=== PATIENT | female | born 1945 | race Caucasian/White ===

== ENCOUNTER 2016-05-25 03:42 | Emergency (ER) | payer OTHER, MEDICARE ==
[~2016-05-25] VITALS: Ht 157.5 cm; Wt 50.0 kg
[~2016-05-25 03:42] MED LIST: ALBU0.63 NEB; AMLO5TAB2 PO; ASPI-515 PO; ASPI-621 PO; ASPI-650 PO; ASTHMA MED PO; ATOR40TA78 PO; CALC-666 PO; CIPR500T87 PO; DIPH25CA61 PO; ESOM40CA PO; ESTR1.25 PO; FLUD0.1T PO; HYDR2TAB13 PO; LIDOCAINE; LORA-702 PO; MAGN400T26 PO; MONT10TA9 PO; ONDA4TAB7 PO; OXYC-302 PO; POTA20LI PO; POTA20TA89 PO; POTA500T PO; PROM25SU34 RC; TAMS-11 PO; TRAM50TA2 PO
[2016-05-25] MEDS ORDERED: LISI5TAB7 PO (04:12)
[2016-05-25 04:37] LABS: BLOOD UREA NITROGEN 16 mg/dL (7-18)
[2016-05-25 04:52] LABS: ASPARTATE AMINO TRANSFERASE 34 U/L (15-37); IS PT STATUS REG ER OR PRE ER? YES
[2016-05-25] MEDS ORDERED: POTASSIUM CHLORIDE 20 MEQ TAB.ER.PRT ONE (05:28)
[2016-05-25] MEDS ORDERED: NITROGLYCERIN OINT 2%, 1GM TP ONE ×2 (05:29→05:30)
[2016-05-25] MEDS ORDERED: POTASSIUM CHLORIDE 20 MEQ TAB.ER.PRT PO ONE (05:30)
[2016-05-25 06:07] VITALS: BP 178/79
== END 2016-05-25 06:16 | disposition home or self-care (01) ==
LOC: ED 04:08
DX: R07.2 Precordial pain (principal); I10 Essential (primary) hypertension; E87.6 Hypokalemia; Z90.89 Acquired absence of other organs; Z90.49 Acquired absence of other specified parts of digestive tract
CPT/HCPCS: 36415; 71010; 80053; 83690; 83735; 84436; 84443; 84484; 85025; 93005; 99285

== ENCOUNTER → 2016-06-18 | Outpatient (CLI) | payer OTHER, MEDICARE ==
[~2016-06-18] MED LIST changes: +LISI5TAB7 PO
== END | disposition home or self-care (01) ==
LOC: CFH 08:10
PROVIDERS: ATTEND Genetic Counselor, MS
DX: Z12.31 Encounter for screening mammogram for malignant neoplasm of breast (principal)
CPT/HCPCS: 77063; G0202

== ENCOUNTER 2016-07-18 19:40 | Emergency (ER) | payer OTHER, MEDICARE ==
[~2016-07-18] VITALS: Ht 160 cm; Wt 57.0 kg
[2016-07-18] MEDS ORDERED: DIPH,PERTUSS(ACELL),TET VAC/PF 0.5 ML IM-VACC ONE ×2 (20:15→20:30)
[2016-07-18] MEDS ORDERED: LIDOCAINE 1%, 20ML ONE (20:47)
[2016-07-18] MEDS ORDERED: LIDOCAINE 1%, 10ML INFIL ONE (21:00)
[2016-07-18 21:33] VITALS: BP 184/81
== END 2016-07-18 21:46 | disposition home or self-care (01) ==
LOC: ED 20:53
DX: S81.841A Puncture wound with foreign body, right lower leg, initial encounter (principal); R05 Cough; I10 Essential (primary) hypertension; W54.8XXA Other contact with dog, initial encounter; Y93.89 Activity, other specified; Y92.89 Other specified places as the place of occurrence of the external cause; Y99.8 Other external cause status
CPT/HCPCS: 10120; 71020; 90471; 90715

== ENCOUNTER → 2016-08-06 | Outpatient (CLI) | payer OTHER, MEDICARE ==
[~2016-08-06] MED LIST changes: -HYDR2TAB13 PO; +HYDR2TAB29 PO
== END | disposition home or self-care (01) ==
LOC: LAB 10:29
PROVIDERS: ATTEND Genetic Counselor, MS
DX: E03.9 Hypothyroidism, unspecified (principal); I10 Essential (primary) hypertension
CPT/HCPCS: 36415; 84439; 84443; 86003; 86005

== ENCOUNTER → 2016-09-17 | Outpatient (CLI) | payer OTHER, MEDICARE | END | disposition home or self-care (01) | LOC: RAD 08:06 | PROVIDERS: ATTEND Nurse Practitioner Family | DX: M25.562 Pain in left knee (principal); M79.662 Pain in left lower leg ==

== ENCOUNTER → 2016-09-21 | Outpatient (CLI) | payer OTHER, MEDICARE | END | disposition home or self-care (01) | LOC: LAB 20:08 | PROVIDERS: ATTEND Nurse Practitioner Family | DX: R19.7 Diarrhea, unspecified (principal) | CPT/HCPCS: 87046; 87177; 87209; 87324; 87899; 89055 ==

== ENCOUNTER → 2016-09-24 | Outpatient (CLI) | payer OTHER, MEDICARE ==
[~2016-09-24] MED LIST changes: +OMNIPAQUE 350 MG/ML, 75ML BOTTLE ONE
== END | disposition home or self-care (01) ==
LOC: RAD 12:34
PROVIDERS: ATTEND Genetic Counselor, MS
DX: I70.0 Atherosclerosis of aorta (principal); M47.894 Other spondylosis, thoracic region; K76.0 Fatty (change of) liver, not elsewhere classified; N20.0 Calculus of kidney; Z90.49 Acquired absence of other specified parts of digestive tract
CPT/HCPCS: 36415; 71260; 82565; Q9967

== ENCOUNTER → 2016-09-28 | Outpatient (CLI) | payer OTHER, MEDICARE ==
[~2016-09-28] MED LIST changes: -OMNIPAQUE 350 MG/ML, 75ML BOTTLE ONE
== END | disposition home or self-care (01) ==
LOC: LAB 15:07
PROVIDERS: ATTEND Genetic Counselor, MS
DX: E03.9 Hypothyroidism, unspecified (principal)
CPT/HCPCS: 36415; 84439; 84443

== ENCOUNTER 2017-01-03 10:54 | Day surgery (SDC) | payer OTHER, MEDICARE ==
[~2017-01-03] VITALS: Ht 158.8 cm; Wt 59.1 kg
[2017-01-03] MEDS ORDERED: PANT40TA5 PO (11:52)
[2017-01-03] MEDS ORDERED: LACTATED RINGERS 1,000 ML IV SCH (11:57)
[2017-01-03 12:01] VITALS: BP 142/68
[2017-01-03] MEDS ORDERED: PLEASE ENTER HEIGHT AND WEIGHT MC SCH (12:30)
[2017-01-03] MEDS ORDERED: LIDOCAINE/PF 1%, 30ML ONE (12:31)
[2017-01-03] MEDS ORDERED: BACITRACIN 50,000 UNIT ONE (12:31)
[2017-01-03 12:48] LABS: ASPARTATE AMINO TRANSFERASE 24 U/L (15-37); BLOOD UREA NITROGEN 17 mg/dL (7-18)
[2017-01-03] MEDS ORDERED: ONDANSETRON 2MG/ML, 2ML ONE (13:59)
[2017-01-03] MEDS ORDERED: CLINDAMYCIN 150 MG/ML, 6ML ONE (13:59)
[2017-01-03] MEDS ORDERED: DEXAMETHASONE 4 MG/ML, 5ML ONE (13:59)
[2017-01-03] MEDS ORDERED: FENTANYL PF 100 MCG/2ML ONE (13:59)
[2017-01-03] MEDS ORDERED: MIDAZOLAM 1 MG/ML, 2ML ONE (13:59)
[2017-01-03] MEDS ORDERED: PROPOFOL 10 MG/ML, 20ML ONE (13:59)
[2017-01-03] MEDS ORDERED: MEPERIDINE/PF 25MG/0.5ML IVPush PRN (14:00)
[2017-01-03] MEDS ORDERED: OXYcodone 5 MG/5 ML ORAL.SOL UDC PO PRN (14:00)
[2017-01-03] MEDS ORDERED: ONDANSETRON 2MG/ML, 2ML IVPush PRN (14:00)
[2017-01-03] MEDS ORDERED: ACETAMINOPHEN 325 MG TABLET PO PRN (14:00)
[2017-01-03] MEDS ORDERED: PROMETHAZINE 25 MG/ML, 1ML IV PRN (14:00)
[2017-01-03] MEDS ORDERED: LABETALOL 5MG/ML, 20ML IV PRN (14:00)
[2017-01-03] MEDS ORDERED: FENTANYL PF 100 MCG/2ML IV PRN (14:00)
[2017-01-03] MEDS ORDERED: KETOROLAC 30 MG/1 ML IV PRN (14:00)
[2017-01-03] MEDS ORDERED: OXYcodone 5 MG/5 ML ORAL.SOL UDC ONE (14:54)
[2017-01-03] MEDS ORDERED: ACETAMINOPHEN 650 MG/20.3 ML UDC ONE (14:54)
== END 2017-01-03 17:25 | disposition home or self-care (01) ==
LOC: OUT 10:54
PROVIDERS: ATTEND Orthopaedic Surgery
DX: T84.84XA Pain due to internal orthopedic prosthetic devices, implants and grafts, initial encounter (principal); Y83.8 Other surgical procedures as the cause of abnormal reaction of the patient, or of later complication, without mention of misadventure at the time of the procedure; Y92.89 Other specified places as the place of occurrence of the external cause; J45.909 Unspecified asthma, uncomplicated; I10 Essential (primary) hypertension; Z88.6 Allergy status to analgesic agent; Z88.1 Allergy status to other antibiotic agents; Z88.5 Allergy status to narcotic agent; Z88.0 Allergy status to penicillin; Z88.8 Allergy status to other drugs, medicaments and biological substances
CPT/HCPCS: 20680; 36415; 73140; 76000; 80053; 93005; J1100; J2250; J2405; J2704; J3010; J3490

== ENCOUNTER 2017-01-11 19:34 | Emergency (ER) | payer OTHER, MEDICARE ==
[~2017-01-11] VITALS: Ht 157.5 cm; Wt 50.0 kg
[~2017-01-11 19:34] MED LIST changes: +PANT40TA5 PO
[2017-01-11] MEDS ORDERED: SODIUM CHLORIDE 0.9% 1,000ML IVBOLUS ONE (20:00)
[2017-01-11] MEDS ORDERED: SODIUM CHLORIDE FLUSH 10ML SYR IVF ONE (20:00)
[2017-01-11] MEDS ORDERED: KETOROLAC 30 MG/1 ML IVPush ONE (20:00)
[2017-01-11] MEDS ORDERED: KETOROLAC 30 MG/1 ML ONE (20:11)
[2017-01-11] MEDS ORDERED: ONDANSETRON 2MG/ML, 2ML ONE (20:11)
[2017-01-11] MEDS ORDERED: ONDANSETRON 2MG/ML, 2ML IVPush ONE (20:30)
[2017-01-11 20:31] LABS: HEMATOCRIT 45.2 % (34.6-47.8); HEMOGLOBIN 15.8 g/dL (11.7-16.4); WHITE BLOOD COUNT 10.4 x10^3/uL (3.4-10)
[2017-01-11 20:39] LABS: ASPARTATE AMINO TRANSFERASE 33 U/L (15-37); BLOOD UREA NITROGEN 15 mg/dL (7-18)
[2017-01-11] MEDS ORDERED: HYDROmorphone 1 MG/ML, 1ML IV ONE (21:30)
[2017-01-11] MEDS ORDERED: HYDROmorphone 1 MG/ML, 1ML ONE (21:32)
[2017-01-11 23:02] VITALS: BP 126/65
== END 2017-01-11 23:03 | disposition home or self-care (01) ==
LOC: ED 20:03
DX: N20.0 Calculus of kidney (principal); K21.9 Gastro-esophageal reflux disease without esophagitis; I10 Essential (primary) hypertension
CPT/HCPCS: 36415; 74176; 80053; 81003; 85025; 96361; 96374; 96375; 99285; J1170; J1885; J2405; J7030

== ENCOUNTER → 2017-02-03 | Outpatient (CLI) | payer OTHER, MEDICARE ==
[2017-02-03 14:08] LABS: ASPARTATE AMINO TRANSFERASE 47 U/L (15-37); BLOOD UREA NITROGEN 12 mg/dL (7-18)
== END | disposition home or self-care (01) ==
LOC: STAR 13:08
PROVIDERS: ATTEND Urology
DX: Z01.818 Encounter for other preprocedural examination (principal); N20.2 Calculus of kidney with calculus of ureter; N23 Unspecified renal colic
CPT/HCPCS: 36415; 80053; 81003; 87086

== ENCOUNTER 2017-03-31 14:15 | Inpatient (IN) | payer OTHER, MEDICARE ==
[~2017-03-31] VITALS: Ht 158.8 cm; Wt 65.0 kg
[2017-03-31] MEDS ORDERED: METOCLOPRAMIDE 5 MG/ML, 2ML ONE (14:56)
[2017-03-31] MEDS ORDERED: DIPHENHYDRAMINE 50 MG/ML, 1ML ONE (14:56)
[2017-03-31] MEDS ORDERED: KETOROLAC 30 MG/1 ML ONE (14:56)
[2017-03-31] MEDS ORDERED: BUPIVACAINE/PF 0.5% ONE (14:56)
[2017-03-31] MEDS ORDERED: BUPIVACAINE/PF-EPI 0.5% 1:200K INFIL ONE (15:00)
[2017-03-31] MEDS ORDERED: DIPHENHYDRAMINE 50 MG/ML, 1ML IVPush ONE (15:00)
[2017-03-31] MEDS ORDERED: KETOROLAC 30 MG/1 ML IVPush ONE (15:00)
[2017-03-31] MEDS ORDERED: METOCLOPRAMIDE 5 MG/ML, 2ML IVPush ONE (15:00)
[2017-03-31] MEDS ORDERED: SODIUM CHLORIDE 0.9% 1,000ML IVBOLUS ONE (15:00)
[2017-03-31 15:34] LABS: BASOPHILS # (AUTO) 0.06 x10^3/uL (0-0.1); BASOPHILS % (AUTO) 1 % (0-1); EOSINOPHILS % (AUTO) 1 % (1-7); LYMPHOCYTES # (AUTO) 1.43 x10^3/uL (1-3.4); LYMPHOCYTES % (AUTO) 13 % (22-44); MD NO; MEAN CORPUSCULAR HEMOGLOBIN 29.7 pg (27.0-34.8); MEAN CORPUSCULAR HGB CONC 33.6 g/dL (32.4-35.8); MEAN CORPUSCULAR VOLUME 88.4 fL (80-100); MEAN PLATELET VOLUME 7.8 fL (7.4-10.4); MONOCYTES # (AUTO) 0.61 x10^3/uL (0.2-0.8); MONOCYTES % (AUTO) 6 % (2-9); NEUTROPHILS # (AUTO) 8.67 x10^3/uL (1.8-6.8); NEUTROPHILS % (AUTO) 80 % (42-75); PLATELET COUNT 280 x10^3/uL (130-400); RED BLOOD COUNT 5.02 x10^6/uL (3.82-5.3); RED CELL DISTRIBUTION WIDTH 12.8 % (9.6-15.2)
[2017-03-31 15:46] LABS: ALBUMIN 3.5 g/dL (3.4-5.0); ANION GAP 8 mmol/L (5-15); CALCIUM 8.4 mg/dL (8.5-10.1); CHLORIDE 102 mmol/L (98-107)
[2017-03-31 15:52] LABS: CREATININE 0.78 mg/dL (0.55-1.02); TROPONIN I < 0.015 ng/mL (0.000-0.045)
[2017-03-31] MEDS ORDERED: HYDROmorphone 2 MG/ML, 1ML ONE ×2 (16:19→18:19)
[2017-03-31] MEDS ORDERED: DEXAMETHASONE 4 MG/ML, 5ML ONE (16:19)
[2017-03-31] MEDS ORDERED: DEXAMETHASONE 4 MG/ML, 1ML PO ONE (16:30)
[2017-03-31] MEDS ORDERED: HYDROmorphone 1 MG/ML, 1ML IV ONE ×2 (16:30→18:30)
[2017-03-31 20:58] VITALS: BP 153/76
[2017-03-31] MEDS ORDERED: POLYETHYLENE GLYCOL 17 GM PACKET PO PRN (22:00)
[2017-03-31] MEDS ORDERED: ACETAMINOPHEN 325 MG TABLET PO PRN (22:00)
[2017-03-31] MEDS ORDERED: BISACODYL 10 MG SUPP PR PRN (22:00)
[2017-03-31] MEDS ORDERED: ONDANSETRON 2MG/ML, 2ML IVPush PRN (22:00)
[2017-03-31] MEDS: SODIUM CHLORIDE FLUSH 10ML SYR IVF SCH (22:28)
[2017-03-31] MEDS: HEPARIN 5,000 UNITS/ML, 1ML SQ SCH (22:28)
[2017-03-31] MEDS: METHOCARBAMOL 750 MG TABLET PO PRN (22:28)
[2017-03-31] MEDS: KETOROLAC 30 MG/1 ML IVPush PRN (22:28)
[2017-04-01 01:20] VITALS: BP 143/71
[2017-04-01] MEDS ORDERED: DIPHENHYDRAMINE 25 MG CAPSULE PO ONE (01:30)
[2017-04-01] MEDS: HEPARIN 5,000 UNITS/ML, 1ML SQ SCH ×3 (06:29→22:04)
[2017-04-01] MEDS: KETOROLAC 30 MG/1 ML IVPush PRN ×3 (06:29→18:22)
[2017-04-01] MEDS: METHOCARBAMOL 750 MG TABLET PO PRN ×2 (06:29→14:36)
[2017-04-01 07:03] VITALS: BP 128/69
[2017-04-01] MEDS: ASPIRIN 81 MG TABLET EC PO SCH (08:36)
[2017-04-01] MEDS: MONTELUKAST 10 MG TABLET PO SCH (08:36)
[2017-04-01] MEDS: PANTOPROZOLE 40MG TABLET PO SCH (08:36)
[2017-04-01] MEDS: LORATADINE/PSE 5/120MG TAB.ER.12H PO SCH ×2 (08:37→20:53)
[2017-04-01] MEDS: SENNA/DOCUSATE TABLET PO SCH (09:00)
[2017-04-01] MEDS: SODIUM CHLORIDE FLUSH 10ML SYR IVF SCH ×2 (09:12→22:04)
[2017-04-01 12:30] VITALS: BP 129/56
[2017-04-01] MEDS: OXYcodone/APAP 5/325MG TABLET PO PRN ×3 (14:52→20:53)
[2017-04-01] MEDS ORDERED: HYDROmorphone 2 MG/ML, 1ML IVPush ONE (17:00)
[2017-04-01] MEDS: GABAPENTIN 300 MG CAPSULE PO SCH ×2 (17:20→20:53)
[2017-04-01] MEDS: DEXAMETHASONE 4 MG TABLET PO SCH (17:20)
[2017-04-01] MEDS ORDERED: NALOXONE 0.4 MG/ML, 1ML IVPush PRN (17:30)
[2017-04-01] MEDS ORDERED: POTASSIUM CHLORIDE 20 MEQ TAB.ER.PRT PO ONE (17:30)
[2017-04-01] MEDS ORDERED: BUTALB/APAP/CAFFEINE 50MG/325MG/40MG PO PRN (17:30)
[2017-04-01] MEDS ORDERED: LIDODERM 5% PATCH TD SCH (18:00)
[2017-04-01 18:50] VITALS: BP 137/65
[2017-04-01] MEDS: OxyconTIN ER 10 MG TAB.ER PO SCH (20:52)
[2017-04-01] MEDS ORDERED: DIPHENHYDRAMINE 25 MG CAPSULE PO PRN (21:30)
[2017-04-02] MEDS: OXYcodone/APAP 5/325MG TABLET PO PRN ×3 (01:21→12:32)
[2017-04-02] MEDS: METHOCARBAMOL 750 MG TABLET PO PRN ×2 (01:21→14:38)
[2017-04-02 01:36] VITALS: BP 130/65
[2017-04-02 05:29] LABS: ANION GAP 7 mmol/L (5-15); CHLORIDE 105 mmol/L (98-107)
[2017-04-02 05:57] LABS: CALCIUM 8.1 mg/dL (8.5-10.1); CREATININE 0.72 mg/dL (0.55-1.02)
[2017-04-02 06:40] VITALS: BP 150/70
[2017-04-02] MEDS: HEPARIN 5,000 UNITS/ML, 1ML SQ SCH ×2 (06:51→14:00)
[2017-04-02] MEDS: DEXAMETHASONE 4 MG TABLET PO SCH ×2 (08:50→12:31)
[2017-04-02] MEDS: SENNA/DOCUSATE TABLET PO SCH (08:50)
[2017-04-02] MEDS: MONTELUKAST 10 MG TABLET PO SCH (08:50)
[2017-04-02] MEDS: GABAPENTIN 300 MG CAPSULE PO SCH (08:50)
[2017-04-02] MEDS: OxyconTIN ER 10 MG TAB.ER PO SCH (08:50)
[2017-04-02] MEDS: ASPIRIN 81 MG TABLET EC PO SCH (08:50)
[2017-04-02] MEDS: LORATADINE/PSE 5/120MG TAB.ER.12H PO SCH (08:50)
[2017-04-02] MEDS: PANTOPROZOLE 40MG TABLET PO SCH (08:50)
[2017-04-02] MEDS: SODIUM CHLORIDE FLUSH 10ML SYR IVF SCH (08:51)
[2017-04-02] MEDS ORDERED: ESTROGENS CONJUGATED 0.625 MG TABLET PO SCH (09:00)
[2017-04-02 12:18] VITALS: BP 172/70
[2017-04-02 12:27] VITALS: BP 148/74
[2017-04-02] MEDS ORDERED: METH750T2 PO (12:52)
[2017-04-02] MEDS ORDERED: METH4TAB6 PO (12:52)
[2017-04-02] MEDS ORDERED: GABA300C10 PO (12:52)
[2017-04-02] MEDS ORDERED: ERGO500017 PO (12:52)
[2017-04-02] MEDS ORDERED: ACET325T14 PO (12:52)
[2017-04-02] MEDS ORDERED: KETO10TA PO (12:52)
[2017-04-02] MEDS ORDERED: ERGOCALCIFEROL 50,000 UNIT CAPSULE PO SCH (13:00)
[2017-04-02 14:00] VITALS: BP 145/70
== END 2017-04-02 14:50 | disposition home or self-care (01) | DRG 552 ==
LOC: ED 14:54 → EDIP 19:53 → 4NOR 20:34
PROVIDERS: ADMIT Hospitalist; ATTEND Hospitalist
PROC: 3E023BZ Introduction of Anesthetic Agent into Muscle, Percutaneous Approach (ICD-10-PCS; principal; 2017-03-31)
PROC: 3E0T3BZ Introduction of Anesthetic Agent into Peripheral Nerves and Plexi, Percutaneous Approach (ICD-10-PCS; 2017-03-31)
DX: M48.02 Spinal stenosis, cervical region (principal); M50.21 Other cervical disc displacement, high cervical region; G43.909 Migraine, unspecified, not intractable, without status migrainosus; E55.9 Vitamin D deficiency, unspecified; E87.6 Hypokalemia; K21.9 Gastro-esophageal reflux disease without esophagitis; I10 Essential (primary) hypertension; M25.78 Osteophyte, vertebrae; Z80.0 Family history of malignant neoplasm of digestive organs; Z86.73 Personal history of transient ischemic attack (TIA), and cerebral infarction without residual deficits; Z87.442 Personal history of urinary calculi; Z90.710 Acquired absence of both cervix and uterus
CPT/HCPCS: 20552; 36415; 64450; 71045; 72141; 80048; 82040; 82306; 82607; 83735; 84484; 85025; 93005; 96361; 96374; 96375; 96376; J1100; J1170; J1644; J1885; J1200; J2765; J7030; Q0163

== ENCOUNTER → 2017-07-30 | Outpatient (CLI) | payer OTHER, MEDICARE ==
[~2017-07-30] MED LIST changes: +ACET325T14 PO; +ERGO500017 PO; +GABA300C10 PO; +KETO10TA PO; +METH4TAB6 PO; +METH750T2 PO
[2017-07-30 13:31] LABS: BASOPHILS # (AUTO) 0.08 x10^3/uL (0-0.1); BASOPHILS % (AUTO) 1 % (0-1); EOSINOPHILS # (AUTO) 0.38 x10^3/uL (0-0.4); EOSINOPHILS % (AUTO) 4 % (1-7); LYMPHOCYTES # (AUTO) 1.56 x10^3/uL (1-3.4); LYMPHOCYTES % (AUTO) 17 % (22-44); MD NO; MEAN CORPUSCULAR HGB CONC 34.1 g/dL (32.4-35.8); MEAN CORPUSCULAR VOLUME 88.2 fL (80-100); MEAN PLATELET VOLUME 7.1 fL (7.4-10.4); MONOCYTES # (AUTO) 0.45 x10^3/uL (0.2-0.8); MONOCYTES % (AUTO) 5 % (2-9); NEUTROPHILS % (AUTO) 74 % (42-75); PLATELET COUNT 234 x10^3/uL (130-400); RED BLOOD COUNT 4.64 x10^6/uL (3.82-5.3); RED CELL DISTRIBUTION WIDTH 13.3 % (9.6-15.2)
[2017-07-30 13:42] LABS: CHLORIDE 109 mmol/L (98-107)
[2017-07-30 13:59] LABS: ALANINE AMINOTRANSFERASE 41 U/L (12-78); ALBUMIN 3.2 g/dL (3.4-5.0); ALKALINE PHOSPHATASE 75 U/L (45-117); ANION GAP 6 mmol/L (5-15); BILIRUBIN,TOTAL 0.8 mg/dL (0.2-1.0); CALCIUM 8.5 mg/dL (8.5-10.1); CHOL/HDL RATIO 4.7; CHOLESTEROL, TOTAL 203 mg/dL (140-239); CREATININE 0.73 mg/dL (0.55-1.02); FREE T4 (FREE THYROXINE) 1.41 ng/dL (0.76-1.46); HDL CHOL % 21 % (28-40); HDL CHOLESTEROL (DIRECT) 43 mg/dL (40-60); LDL CHOLESTEROL,CALCULATED 136 mg/dL (54-169); LDL/HDL RATIO 3.2 (0.5-3.0); TOTAL PROTEIN 6.4 g/dL (6.4-8.2); TRIGLYCERIDES 118 mg/dL (50-200); VLDL CHOLESTEROL 24 mg/dL (0-25)
== END ==
LOC: LAB 13:01
PROVIDERS: ATTEND Genetic Counselor, MS
DX: Z13.820 Encounter for screening for osteoporosis (principal); I10 Essential (primary) hypertension; E03.9 Hypothyroidism, unspecified
CPT/HCPCS: 36415; 80053; 80061; 82306; 83735; 84439; 84443; 85025

== ENCOUNTER → 2017-09-01 | Outpatient (CLI) | payer OTHER, MEDICARE | END | disposition home or self-care (01) | LOC: RAD 12:10 | PROVIDERS: ATTEND Urology | DX: N20.0 Calculus of kidney (principal) | CPT/HCPCS: 76770 ==

== ENCOUNTER → 2017-09-28 | Outpatient (CLI) | payer OTHER, MEDICARE ==
[~2017-09-28] MED LIST changes: +LISI-167 PO
[2017-09-28 17:13] LABS: ALANINE AMINOTRANSFERASE 41 U/L (12-78); ALBUMIN 3.4 g/dL (3.4-5.0); ANION GAP 8 mmol/L (5-15); CALCIUM 8.3 mg/dL (8.5-10.1); CHLORIDE 108 mmol/L (98-107); CREATININE 0.89 mg/dL (0.55-1.02)
[2017-09-28 17:22] LABS: ALKALINE PHOSPHATASE 82 U/L (45-117); BILIRUBIN,TOTAL 0.7 mg/dL (0.2-1.0); FREE T4 (FREE THYROXINE) 1.46 ng/dL (0.76-1.46); THYROID STIMULATING HORMONE 0.747 mIU/L (0.358-3.740); TOTAL PROTEIN 6.8 g/dL (6.4-8.2)
== END | disposition home or self-care (01) ==
LOC: LAB 16:41
PROVIDERS: ATTEND Genetic Counselor, MS
DX: I10 Essential (primary) hypertension (principal); E03.9 Hypothyroidism, unspecified
CPT/HCPCS: 36415; 80053; 84439; 84443

== ENCOUNTER 2017-10-10 06:34 | Day surgery (SDC) | payer OTHER, MEDICARE ==
[~2017-10-10] VITALS: Ht 157.5 cm; Wt 63.3 kg
[2017-10-10] MEDS ORDERED: LACTATED RINGERS 1,000 ML IV SCH (07:21)
[2017-10-10 07:43] VITALS: BP 168/77
[2017-10-10] MEDS ORDERED: DICY10CA3 PO (07:52)
[2017-10-10] MEDS ORDERED: LORA10TA3 PO (07:52)
[2017-10-10] MEDS ORDERED: LEVO50TA5 PO (07:52)
[2017-10-10] MEDS ORDERED: PANT40TA5 PO (07:52)
[2017-10-10] MEDS ORDERED: ESTR1TAB15 PO (07:52)
[2017-10-10] MEDS ORDERED: MIDAZOLAM 1 MG/ML, 2ML ONE (08:09)
[2017-10-10] MEDS ORDERED: FENTANYL PF 250 MCG/5ML ONE (08:11)
[2017-10-10] MEDS ORDERED: FENTANYL PF 100 MCG/2ML IV PRN (09:00)
[2017-10-10] MEDS ORDERED: PROMETHAZINE 25 MG SUPP PR PRN (09:00)
[2017-10-10] MEDS ORDERED: ONDANSETRON ODT 8 MG PO PRN (09:00)
[2017-10-10] MEDS ORDERED: PROMETHAZINE 25 MG/ML, 1ML IV PRN (09:00)
[2017-10-10] MEDS ORDERED: OXYcodone 5 MG/5 ML ORAL.SOL UDC PO PRN (09:00)
[2017-10-10] MEDS ORDERED: LABETALOL 5MG/ML, 20ML IV PRN (09:00)
[2017-10-10] MEDS ORDERED: ONDANSETRON 2MG/ML, 2ML IV PRN (09:00)
[2017-10-10] MEDS ORDERED: ACETAMINOPHEN 325 MG TABLET PO PRN (09:00)
[2017-10-10] MEDS ORDERED: ALBUTEROL HFA 90 MCG/SPRAY ONE (09:36)
[2017-10-10] MEDS ORDERED: LIDOCAINE GEL 2%, 5ML ONE ×2 (09:37)
[2017-10-10] MEDS ORDERED: GLYCOPYRROLATE 0.2MG/1ML, 5ML ONE (09:37)
[2017-10-10] MEDS ORDERED: SUCCINYLCHOLINE 20 MG/ML, 10ML ONE (09:37)
[2017-10-10] MEDS ORDERED: NEOSTIGMINE 1 MG/ML, 10ML ONE (09:37)
[2017-10-10] MEDS ORDERED: ONDANSETRON 2MG/ML, 2ML ONE (09:37)
[2017-10-10] MEDS ORDERED: PROPOFOL 10 MG/ML, 20ML ONE (09:37)
[2017-10-10] MEDS ORDERED: DEXAMETHASONE 4 MG/ML, 1ML ONE (09:37)
[2017-10-10] MEDS ORDERED: CEFAZOLIN 1,000 MG ONE (09:37)
[2017-10-10] MEDS ORDERED: ROCURONIUM 10MG/ML,5ML ONE (09:37)
[2017-10-10] MEDS ORDERED: ALBUTEROL/IPRATROPIUM 2.5MG/0.5MG, 3 ML ONE ×2 (09:48→16:16)
[2017-10-10] MEDS ORDERED: OXYcodone/APAP 5/325MG TABLET PO PRN (10:00)
[2017-10-10] MEDS ORDERED: KETOROLAC 30 MG/1 ML IV PRN (10:00)
[2017-10-10] MEDS ORDERED: ALBUTEROL/IPRATROPIUM 2.5MG/0.5MG, 3 ML NPPB PRN (10:00)
[2017-10-10] MEDS ORDERED: KETOROLAC 30 MG/1 ML ONE (10:23)
[2017-10-10] MEDS ORDERED: OXYcodone 5 MG/5 ML ORAL.SOL UDC ONE ×2 (10:40→10:42)
[2017-10-10] MEDS ORDERED: FENTANYL PF 100 MCG/2ML ONE (10:42)
[2017-10-10] MEDS ORDERED: ALBUTEROL SULFATE 200 PUFFS/8.5 GR INH ONE (15:10)
[2017-10-10] MEDS ORDERED: KETOROLAC 30 MG/1 ML IVPush PRN ×2 (17:30)
== END 2017-10-10 19:15 | disposition home or self-care (01) ==
LOC: OUT 06:34 → MERGE 17:30 → OUT 19:15
PROVIDERS: ATTEND Urology
DX: N20.0 Calculus of kidney (principal); J45.909 Unspecified asthma, uncomplicated; I10 Essential (primary) hypertension; E03.9 Hypothyroidism, unspecified; Z88.6 Allergy status to analgesic agent; Z88.1 Allergy status to other antibiotic agents; Z88.8 Allergy status to other drugs, medicaments and biological substances; Z88.0 Allergy status to penicillin; Z86.73 Personal history of transient ischemic attack (TIA), and cerebral infarction without residual deficits; Z85.41 Personal history of malignant neoplasm of cervix uteri; Z79.82 Long term (current) use of aspirin; Z79.899 Other long term (current) drug therapy; Z98.890 Other specified postprocedural states
CPT/HCPCS: 52353; 74018; 76000; 94640; C1769; J0330; J0690; J1100; J1885; J2250; J2405; J2704; J2710; J3010; J3490; J7120; J7620; Q0162

== ENCOUNTER → 2017-10-25 | Outpatient (CLI) | payer OTHER, MEDICARE ==
[~2017-10-25] MED LIST changes: -AMLO5TAB2 PO; +AMLO5TAB7 PO; +DICY10CA3 PO; +ESTR1TAB15 PO; +LEVO50TA5 PO; +LORA10TA3 PO
[2017-10-25 17:38] LABS: ALANINE AMINOTRANSFERASE 58 U/L (12-78); ALBUMIN 3.3 g/dL (3.4-5.0); ANION GAP 5 mmol/L (5-15); CALCIUM 8.8 mg/dL (8.5-10.1); CHLORIDE 111 mmol/L (98-107); CREATININE 1.01 mg/dL (0.55-1.02)
[2017-10-25 17:41] LABS: ALKALINE PHOSPHATASE 86 U/L (45-117); BILIRUBIN,TOTAL 0.6 mg/dL (0.2-1.0); TOTAL PROTEIN 6.9 g/dL (6.4-8.2)
== END | disposition home or self-care (01) ==
LOC: LAB 17:06
PROVIDERS: ATTEND Genetic Counselor, MS
DX: E87.6 Hypokalemia (principal)
CPT/HCPCS: 36415; 80053; 83735

== ENCOUNTER 2017-11-10 22:13 | Emergency (ER) | payer OTHER, MEDICARE ==
[2017-11-10] MEDS ORDERED: HYDROmorphone 2 MG/ML, 1ML ONE (22:35)
[2017-11-10 22:59] LABS: BASOPHILS # (AUTO) 0.06 x10^3/uL (0-0.1); BASOPHILS % (AUTO) 1 % (0-1); EOSINOPHILS # (AUTO) 0.25 x10^3/uL (0-0.4); EOSINOPHILS % (AUTO) 4 % (1-7); LYMPHOCYTES # (AUTO) 1.72 x10^3/uL (1-3.4); LYMPHOCYTES % (AUTO) 24 % (22-44); MD NO; MEAN CORPUSCULAR HEMOGLOBIN 29.9 pg (27.0-34.8); MEAN CORPUSCULAR HGB CONC 34.4 g/dL (32.4-35.8); MEAN CORPUSCULAR VOLUME 86.8 fL (80-100); MEAN PLATELET VOLUME 7.6 fL (7.4-10.4); MONOCYTES # (AUTO) 0.67 x10^3/uL (0.2-0.8); MONOCYTES % (AUTO) 10 % (2-9); NEUTROPHILS # (AUTO) 4.39 x10^3/uL (1.8-6.8); NEUTROPHILS % (AUTO) 62 % (42-75); PLATELET COUNT 266 x10^3/uL (130-400); RED BLOOD COUNT 4.93 x10^6/uL (3.82-5.3); RED CELL DISTRIBUTION WIDTH 13.5 % (9.6-15.2)
[2017-11-10] MEDS ORDERED: HYDROmorphone 2 MG/ML, 1ML IVPush PRN (23:00)
[2017-11-10] MEDS ORDERED: SODIUM CHLORIDE FLUSH 10ML SYR IVF ONE (23:00)
[2017-11-10 23:09] LABS: ALANINE AMINOTRANSFERASE 46 U/L (12-78); ALBUMIN 3.6 g/dL (3.4-5.0); ANION GAP 10 mmol/L (5-15); CALCIUM 8.8 mg/dL (8.5-10.1); CHLORIDE 109 mmol/L (98-107); CREATININE 0.89 mg/dL (0.55-1.02)
[2017-11-10 23:13] LABS: ALKALINE PHOSPHATASE 103 U/L (45-117); BILIRUBIN,TOTAL 0.8 mg/dL (0.2-1.0); TOTAL PROTEIN 7.3 g/dL (6.4-8.2); TROPONIN I < 0.015 ng/mL (0.000-0.045)
[2017-11-10] MEDS ORDERED: DIPHENHYDRAMINE 25 MG CAPSULE ONE (23:23)
[2017-11-10] MEDS ORDERED: FAMOTIDINE 20 MG/2 ML ONE (23:23)
[2017-11-10 23:24] LABS: MICROSCOPIC INDICATED
[2017-11-10 23:25] LABS: CULTURE INDICATED? YES; INTERNATIONAL NORMALIZED RATIO 1.03 (0.93-1.1); PROTHROMBIN TIME 10.7 Seconds (9.6-11.5)
[2017-11-10] MEDS ORDERED: OMNIPAQUE 350 MG/ML, 100ML BOTTLE ONE (23:45)
[2017-11-10] MEDS ORDERED: POTASSIUM CHLORIDE 20 MEQ TAB.ER.PRT ONE (23:59)
[2017-11-11] MEDS ORDERED: POTASSIUM CHLORIDE 20 MEQ TAB.ER.PRT PO ONE
[2017-11-11 00:45] LABS: FREE T4 (FREE THYROXINE) 1.23 ng/dL (0.76-1.46); THYROID STIMULATING HORMONE 3.16 mIU/L (0.358-3.740)
[2017-11-11] MEDS ORDERED: ONDANSETRON ODT 4 MG ONE (00:45)
[2017-11-11] MEDS ORDERED: PROMETHAZINE 25 MG/ML, 1ML IM STA (01:24)
[2017-11-11 01:57] VITALS: BP 144/82
== END 2017-11-11 01:59 | disposition home or self-care (01) ==
LOC: ED 22:35
DX: N20.0 Calculus of kidney (principal); E87.6 Hypokalemia; R60.0 Localized edema; R10.32 Left lower quadrant pain; I10 Essential (primary) hypertension; K21.9 Gastro-esophageal reflux disease without esophagitis; Z86.73 Personal history of transient ischemic attack (TIA), and cerebral infarction without residual deficits
CPT/HCPCS: 36415; 71275; 74176; 80053; 81001; 83690; 83880; 84439; 84443; 84484; 85025; 85610; 87086; 93005; 96372; 96374; 99285; J1170; J2550; Q9967

== ENCOUNTER → 2017-12-05 | Outpatient (CLI) | payer OTHER, MEDICARE ==
[2017-12-05 17:57] LABS: CHLORIDE 109 mmol/L (98-107)
[2017-12-05 18:03] LABS: ALANINE AMINOTRANSFERASE 39 U/L (12-78); ALBUMIN 3.3 g/dL (3.4-5.0); ALKALINE PHOSPHATASE 80 U/L (45-117); ANION GAP 10 mmol/L (5-15); BILIRUBIN,TOTAL 0.6 mg/dL (0.2-1.0); CALCIUM 8.5 mg/dL (8.5-10.1); CREATININE 0.87 mg/dL (0.55-1.02); TOTAL PROTEIN 6.8 g/dL (6.4-8.2)
== END | disposition home or self-care (01) ==
LOC: LAB 17:18
PROVIDERS: ATTEND Genetic Counselor, MS
DX: E87.6 Hypokalemia (principal)
CPT/HCPCS: 36415; 80053

== ENCOUNTER → 2017-12-12 | Outpatient (CLI) | payer OTHER, MEDICARE ==
[2017-12-12 17:58] LABS: ANION GAP 7 mmol/L (5-15); CALCIUM 8.8 mg/dL (8.5-10.1); CHLORIDE 109 mmol/L (98-107)
[2017-12-12 17:59] LABS: CREATININE 0.82 mg/dL (0.55-1.02)
== END | disposition home or self-care (01) ==
LOC: LAB 17:29
PROVIDERS: ATTEND Genetic Counselor, MS
DX: E87.6 Hypokalemia (principal)
CPT/HCPCS: 36415; 80048

== ENCOUNTER → 2017-12-26 | Outpatient (CLI) | payer OTHER, MEDICARE ==
[2017-12-26 17:33] LABS: PROTHROMBIN TIME 10.4 Seconds (9.6-11.5)
[2017-12-26 18:09] LABS: ALBUMIN 3.3 g/dL (3.4-5.0); BILIRUBIN, DIRECT 0.2 mg/dL (0.1-0.2); BILIRUBIN,INDIRECT 0.5 mg/dL (0.0-2.0); BILIRUBIN,TOTAL 0.7 mg/dL (0.2-1.0); TOTAL PROTEIN 6.7 g/dL (6.4-8.2)
[2017-12-27 16:21] LABS: ANA SCREEN NEGATIVE (Negative)
== END | disposition home or self-care (01) ==
LOC: LAB 16:52
PROVIDERS: ATTEND Nurse Practitioner Family
DX: R74.8 Abnormal levels of other serum enzymes (principal)
CPT/HCPCS: 36415; 80076; 82103; 82105; 82390; 82607; 82728; 83516; 83540; 83550; 85610; 86038

== ENCOUNTER → 2018-02-15 | Outpatient (CLI) | payer OTHER, MEDICARE ==
[~2018-02-15] MED LIST changes: +AMLO-150 PO; -AMLO5TAB7 PO; -ASPI-621 PO; +ASPI81TA45 PO
[2018-02-15 06:51] LABS: BASOPHILS # (AUTO) 0.15 x10^3/uL (0-0.1); BASOPHILS % (AUTO) 2 % (0-1); EOSINOPHILS # (AUTO) 0.36 x10^3/uL (0-0.4); EOSINOPHILS % (AUTO) 5 % (1-7); LYMPHOCYTES # (AUTO) 1.74 x10^3/uL (1-3.4); LYMPHOCYTES % (AUTO) 26 % (22-44); MD NO; MEAN CORPUSCULAR HEMOGLOBIN 28.2 pg (27.0-34.8); MEAN CORPUSCULAR HGB CONC 33.8 g/dL (32.4-35.8); MEAN CORPUSCULAR VOLUME 83.6 fL (80-100); MEAN PLATELET VOLUME 7.7 fL (7.4-10.4); MONOCYTES # (AUTO) 0.52 x10^3/uL (0.2-0.8); MONOCYTES % (AUTO) 8 % (2-9); NEUTROPHILS # (AUTO) 3.95 x10^3/uL (1.8-6.8); NEUTROPHILS % (AUTO) 59 % (42-75); PLATELET COUNT 242 x10^3/uL (130-400); RED BLOOD COUNT 4.89 x10^6/uL (3.82-5.3); RED CELL DISTRIBUTION WIDTH 13.3 % (9.6-15.2)
[2018-02-15 07:20] LABS: PROTHROMBIN TIME 10.6 Seconds (9.6-11.5)
== END | disposition home or self-care (01) ==
LOC: LAB 06:21
PROVIDERS: ATTEND Nurse Practitioner Family
DX: Z01.812 Encounter for preprocedural laboratory examination (principal)
CPT/HCPCS: 36415; 85025; 85610

== ENCOUNTER → 2018-02-16 | Outpatient (CLI) | payer OTHER, MEDICARE ==
[~2018-02-16] VITALS: Ht 158.8 cm; Wt 61.6 kg
[~2018-02-16] MED LIST changes: +FENTANYL PF 100 MCG/2ML ONE; +FLUMAZENIL 0.1 MG/1 ML, 5ML ONE; +KETOROLAC 30 MG/1 ML IVPush ONE; +KETOROLAC 30 MG/1 ML ONE; +LIDOCAINE-MPF 1%, 5ML ONE; +MIDAZOLAM 1 MG/ML, 5ML ONE; +NALOXONE 1 MG/ML, 2ML ONE; +OMNIPAQUE 350 MG/ML, 100ML BOTTLE ONE; +OXYcodone IR 5MG TABLET ONE; +OXYcodone IR 5MG TABLET PO PRN; +SODIUM CHLORIDE 0.9% 1,000 ML IV SCH
[2018-02-16 07:26] VITALS: BP 149/73
[2018-02-16] MEDS: OXYcodone IR 5MG TABLET PO PRN ×2 (11:50→12:44)
== END | disposition home or self-care (01) ==
LOC: RAD 06:30
PROVIDERS: ATTEND Nurse Practitioner Family
DX: K75.81 Nonalcoholic steatohepatitis (NASH) (principal); I10 Essential (primary) hypertension; J45.909 Unspecified asthma, uncomplicated; Z79.82 Long term (current) use of aspirin; Z88.6 Allergy status to analgesic agent; Z88.1 Allergy status to other antibiotic agents; Z88.0 Allergy status to penicillin; Z88.8 Allergy status to other drugs, medicaments and biological substances; Z98.890 Other specified postprocedural states; Z90.49 Acquired absence of other specified parts of digestive tract; Z90.710 Acquired absence of both cervix and uterus; Z79.899 Other long term (current) drug therapy; Z87.442 Personal history of urinary calculi
CPT/HCPCS: 47000; 74160; 76942; 88307; 88313; J1885; J2250; J3010; J7030; Q9967; J2310

== ENCOUNTER → 2018-03-06 | Outpatient (CLI) | payer OTHER, MEDICARE ==
[~2018-03-06] MED LIST changes: -FENTANYL PF 100 MCG/2ML ONE; -FLUMAZENIL 0.1 MG/1 ML, 5ML ONE; -KETOROLAC 30 MG/1 ML IVPush ONE; -KETOROLAC 30 MG/1 ML ONE; -LIDOCAINE-MPF 1%, 5ML ONE; +LORA-247 PO; -LORA10TA3 PO; -MIDAZOLAM 1 MG/ML, 5ML ONE; -NALOXONE 1 MG/ML, 2ML ONE; -OMNIPAQUE 350 MG/ML, 100ML BOTTLE ONE; -OXYcodone IR 5MG TABLET ONE; -OXYcodone IR 5MG TABLET PO PRN; -SODIUM CHLORIDE 0.9% 1,000 ML IV SCH
[2018-03-06 17:45] LABS: BASOPHILS # (AUTO) 0.04 x10^3/uL (0-0.1); BASOPHILS % (AUTO) 1 % (0-1); EOSINOPHILS # (AUTO) 0.21 x10^3/uL (0-0.4); EOSINOPHILS % (AUTO) 4 % (1-7); LYMPHOCYTES # (AUTO) 1.48 x10^3/uL (1-3.4); LYMPHOCYTES % (AUTO) 25 % (22-44); MD NO; MEAN CORPUSCULAR HEMOGLOBIN 28.3 pg (27.0-34.8); MEAN CORPUSCULAR HGB CONC 34.2 g/dL (32.4-35.8); MEAN CORPUSCULAR VOLUME 82.7 fL (80-100); MEAN PLATELET VOLUME 7.4 fL (7.4-10.4); MONOCYTES # (AUTO) 0.53 x10^3/uL (0.2-0.8); MONOCYTES % (AUTO) 9 % (2-9); NEUTROPHILS # (AUTO) 3.66 x10^3/uL (1.8-6.8); NEUTROPHILS % (AUTO) 62 % (42-75); PLATELET COUNT 249 x10^3/uL (130-400); RED BLOOD COUNT 4.88 x10^6/uL (3.82-5.3); RED CELL DISTRIBUTION WIDTH 13.6 % (9.6-15.2)
== END | disposition home or self-care (01) ==
LOC: LAB 17:29
PROVIDERS: ATTEND Nurse Practitioner Family
DX: R53.83 Other fatigue (principal)
CPT/HCPCS: 36415; 82728; 83540; 83550; 85025

== ENCOUNTER 2018-03-15 18:14 | Emergency (ER) | payer OTHER, MEDICARE ==
[~2018-03-15] VITALS: Ht 157.5 cm; Wt 54.0 kg
[2018-03-15] MEDS ORDERED: IBUPROFEN 200 MG TABLET ONE (18:37)
[2018-03-15] MEDS ORDERED: IBUPROFEN 200 MG TABLET PO ONE (19:00)
[2018-03-15 20:09] VITALS: BP 141/84
== END 2018-03-15 20:11 | disposition home or self-care (01) ==
LOC: ED 18:26
DX: S39.012A Strain of muscle, fascia and tendon of lower back, initial encounter (principal); G89.11 Acute pain due to trauma; M25.532 Pain in left wrist; K21.9 Gastro-esophageal reflux disease without esophagitis; Z90.49 Acquired absence of other specified parts of digestive tract; Z90.710 Acquired absence of both cervix and uterus; Z86.73 Personal history of transient ischemic attack (TIA), and cerebral infarction without residual deficits; W01.0XXA Fall on same level from slipping, tripping and stumbling without subsequent striking against object, initial encounter; Y93.01 Activity, walking, marching and hiking; Y92.89 Other specified places as the place of occurrence of the external cause; Y99.8 Other external cause status
CPT/HCPCS: 72110; 72220; 99283

== ENCOUNTER → 2018-03-15 | Outpatient (CLI) | payer OTHER, MEDICARE | END | disposition home or self-care (01) | LOC: RAD 14:10 | PROVIDERS: ATTEND Pain Medicine Pain Medicine | DX: M47.22 Other spondylosis with radiculopathy, cervical region (principal); M48.02 Spinal stenosis, cervical region | CPT/HCPCS: 72141 ==

== ENCOUNTER → 2018-04-28 | Outpatient (CLI) | payer OTHER, MEDICARE | END | disposition home or self-care (01) | LOC: RAD 16:59 | PROVIDERS: ATTEND Orthopaedic Surgery | DX: M50.30 Other cervical disc degeneration, unspecified cervical region (principal); M47.812 Spondylosis without myelopathy or radiculopathy, cervical region | CPT/HCPCS: 72050 ==

== ENCOUNTER → 2018-05-20 | Outpatient (CLI) | payer OTHER, MEDICARE ==
[2018-05-20 13:33] LABS: BASOPHILS # (AUTO) 0.07 x10^3/uL (0-0.1); BASOPHILS % (AUTO) 1 % (0-1); EOSINOPHILS # (AUTO) 0.25 x10^3/uL (0-0.4); EOSINOPHILS % (AUTO) 4 % (1-7); LYMPHOCYTES # (AUTO) 1.24 x10^3/uL (1-3.4); LYMPHOCYTES % (AUTO) 21 % (22-44); MD NO; MEAN CORPUSCULAR HEMOGLOBIN 27.2 pg (27.0-34.8); MEAN CORPUSCULAR HGB CONC 33.2 g/dL (32.4-35.8); MEAN PLATELET VOLUME 7.4 fL (7.4-10.4); MONOCYTES # (AUTO) 0.43 x10^3/uL (0.2-0.8); MONOCYTES % (AUTO) 8 % (2-9); NEUTROPHILS # (AUTO) 3.81 x10^3/uL (1.8-6.8); NEUTROPHILS % (AUTO) 66 % (42-75); PLATELET COUNT 233 x10^3/uL (130-400); RED BLOOD COUNT 4.96 x10^6/uL (3.82-5.3); RED CELL DISTRIBUTION WIDTH 14.6 % (9.6-15.2)
== END | disposition home or self-care (01) ==
LOC: RAD 13:00
PROVIDERS: ATTEND Allergy & Immunology Allergy
DX: N20.0 Calculus of kidney (principal); J45.909 Unspecified asthma, uncomplicated
CPT/HCPCS: 36415; 74018; 82785; 85025

== ENCOUNTER → 2018-05-31 | Outpatient (CLI) | payer OTHER, MEDICARE | END | disposition home or self-care (01) | LOC: RAD 13:01 | PROVIDERS: ATTEND Orthopaedic Surgery | DX: J32.9 Chronic sinusitis, unspecified (principal); J34.2 Deviated nasal septum | CPT/HCPCS: 70486 ==

== ENCOUNTER → 2018-07-03 | Outpatient (CLI) | payer OTHER, MEDICARE | END | disposition home or self-care (01) | LOC: RAD 17:15 | PROVIDERS: ATTEND Pain Medicine Pain Medicine | DX: M25.561 Pain in right knee (principal); Z91.81 History of falling ==

== ENCOUNTER 2018-12-13 08:44 | Outpatient (CLI) | payer OTHER, MEDICARE ==
[~2018-12-13 08:44] MED LIST changes: -POTA20LI PO; +POTA20LI2 PO; +POTA20TA6 PO; +PROBIOTIC; +REGADENOSON 0.4 MG/5 ML SYRINGE ONE
== END 2018-12-13 23:59 | disposition home or self-care (01) ==
LOC: CFH 08:44
PROVIDERS: ATTEND Internal Medicine Cardiovascular Disease
DX: R06.02 Shortness of breath (principal); K76.0 Fatty (change of) liver, not elsewhere classified
CPT/HCPCS: 78452; 93017; A9502; J2785

== ENCOUNTER 2018-12-14 14:30 | Outpatient (CLI) | payer OTHER, MEDICARE ==
[~2018-12-14 14:30] MED LIST changes: -REGADENOSON 0.4 MG/5 ML SYRINGE ONE
[2018-12-14 14:52] LABS: ANION GAP 5 mmol/L (5-15); CALCIUM 9.2 mg/dL (8.5-10.1); CHLORIDE 110 mmol/L (98-107); CREATININE 0.83 mg/dL (0.55-1.02)
== END 2018-12-14 23:59 | disposition home or self-care (01) ==
LOC: LAB 14:30
PROVIDERS: ATTEND Physician Assistant
DX: E87.6 Hypokalemia (principal); I50.32 Chronic diastolic (congestive) heart failure
CPT/HCPCS: 36415; 80048

== ENCOUNTER → 2019-01-23 | Outpatient (CLI) | payer OTHER, MEDICARE ==
[2019-01-23 18:00] LABS: ANION GAP 6 mmol/L (5-15); CALCIUM 8.9 mg/dL (8.5-10.1); CHLORIDE 111 mmol/L (98-107); CREATININE 0.91 mg/dL (0.55-1.02)
== END | disposition home or self-care (01) ==
LOC: LAB 17:25
PROVIDERS: ATTEND Physician Assistant
DX: E87.6 Hypokalemia (principal)
CPT/HCPCS: 36415; 80048

== ENCOUNTER 2019-03-27 14:57 | Outpatient (CLI) | payer OTHER, MEDICARE ==
[~2019-03-27 14:57] MED LIST changes: +MONT10TA11 PO; -MONT10TA9 PO
[2019-03-27 15:27] LABS: ALBUMIN 3.8 g/dL (3.4-5.0); ANION GAP 5 mmol/L (5-15); CALCIUM 9.5 mg/dL (8.5-10.1); CHLORIDE 107 mmol/L (98-107)
[2019-03-27 15:31] LABS: ALANINE AMINOTRANSFERASE 31 U/L (12-78); ALKALINE PHOSPHATASE 80 U/L (45-117); BILIRUBIN,TOTAL 0.9 mg/dL (0.2-1.0); CHOL/HDL RATIO 5.6; CHOLESTEROL, TOTAL 242 mg/dL (140-239); CREATININE 0.96 mg/dL (0.55-1.02); HDL CHOL % 18 % (28-40); HDL CHOLESTEROL (DIRECT) 43 mg/dL (40-60); LDL CHOLESTEROL,CALCULATED 165 mg/dL (54-169); LDL/HDL RATIO 3.8 (0.5-3.0); TOTAL PROTEIN 7.5 g/dL (6.4-8.2); TRIGLYCERIDES 171 mg/dL (50-200); VLDL CHOLESTEROL 34 mg/dL (0-25)
== END 2019-03-27 23:59 | disposition home or self-care (01) ==
LOC: LAB 14:57
PROVIDERS: ATTEND Physician Assistant Medical
DX: E87.6 Hypokalemia (principal); I50.32 Chronic diastolic (congestive) heart failure
CPT/HCPCS: 36415; 80053; 80061

== ENCOUNTER 2019-08-30 19:30 | Emergency (ER) | payer OTHER, MEDICARE ==
[~2019-08-30] VITALS: Ht 157.5 cm; Wt 59.0 kg
[2019-08-30] MEDS ORDERED: OXYcodone/APAP 5/325MG TABLET PO ONE (20:00)
--- NOTE | 2019-08-30 20:00 | NUR ---
PT TO ED WITH RIGHT EAR PAIN X4 DAYS, DENIES DRAINAGE, RADIATION OR DIFFICULTY HEARING. REPORTS CHRONIC NECK PAIN. PT CONNECTED TO MONITORING, CALL LIGHT WITHIN REACH, ALL SAFETY MEASURES IN PLACE. PT UPDATED ON POC.
[2019-08-30] MEDS ORDERED: OXYcodone/APAP 5/325MG TABLET ONE (20:08)
[2019-08-30 20:27] LABS: BASOPHILS # (AUTO) 0.04 x10^3/uL (0-0.1); BASOPHILS % (AUTO) 1 % (0-1); EOSINOPHILS # (AUTO) 0.18 x10^3/uL (0-0.4); EOSINOPHILS % (AUTO) 3 % (1-7); LYMPHOCYTES # (AUTO) 1.35 x10^3/uL (1-3.4); LYMPHOCYTES % (AUTO) 19 % (22-44); MD NO; MEAN CORPUSCULAR HEMOGLOBIN 30.9 pg (27.0-34.8); MEAN CORPUSCULAR VOLUME 93.8 fL (80-100); MEAN PLATELET VOLUME 7.3 fL (7.4-10.4); MONOCYTES # (AUTO) 0.36 x10^3/uL (0.2-0.8); MONOCYTES % (AUTO) 5 % (2-9); NEUTROPHILS # (AUTO) 5.12 x10^3/uL (1.8-6.8); NEUTROPHILS % (AUTO) 73 % (42-75); PLATELET COUNT 268 x10^3/uL (130-400); RED BLOOD COUNT 4.41 x10^6/uL (3.82-5.3); RED CELL DISTRIBUTION WIDTH 12.9 % (9.6-15.2)
[2019-08-30] MEDS ORDERED: CARBAMAZEPINE 200 MG TABLET PO ONE (21:28)
[2019-08-30 21:38] VITALS: BP 132/51
[2019-08-30] MEDS ORDERED: CARBAMAZEPINE 200 MG TABLET ONE (21:46)
[2019-08-30] MEDS ORDERED: DIPHENHYDRAMINE 25 MG CAPSULE ONE (21:46)
[2019-08-30] MEDS ORDERED: DIPHENHYDRAMINE 25 MG CAPSULE PO ONE (22:00)
== END 2019-08-30 22:29 | disposition home or self-care (01) ==
LOC: ED 19:57
DX: M26.621 Arthralgia of right temporomandibular joint (principal); H92.01 Otalgia, right ear; I10 Essential (primary) hypertension; Z86.73 Personal history of transient ischemic attack (TIA), and cerebral infarction without residual deficits; K21.9 Gastro-esophageal reflux disease without esophagitis; Z90.49 Acquired absence of other specified parts of digestive tract; Z90.710 Acquired absence of both cervix and uterus; Z90.89 Acquired absence of other organs
CPT/HCPCS: 36415; 70486; 85025; 99284; Q0163